=== PATIENT | female | born 2000 | race Caucasian/White ===

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

== ENCOUNTER → 2018-07-12 | Outpatient (CLI) | payer SELFPAY ==
--- NOTE | 2018-07-12 15:32 | RADIOLOGY REPORT (SQ) ---
EXAM DESCRIPTION: U/S OB 14+ TRNABD 1GES W/O DOP COMPLETED DATE/TIME: 07/12/2018 3:02 pm REASON FOR STUDY: Z34.82 ENCOUNTER FOR SUPRVSN OF NORMAL , SECOND TRIMESTER Z34.82 ENCOUNT ER FOR SUPRVSN OF NORMAL , SECOND TRI COMPARISON: No previous imaging this TECHNIQUE: Static and Dynamic grayscale imaging performed of gravid uterus using transabdominal appr oach. Additional selected color Doppler and spectral images recorded. All stored on PACS. LIMITATIONS: None. FINDINGS: FETUSES SEEN:1 EGA: By ultrasound measurements is 26 weeks 3 days, estimated due date 10/15/2018. Calculated today u sing BPD,FL,HC,AC documented on images. Patient reports last menses 02/05/2018 which would make the clinical age 22 weeks 3 days and due date . NAY: By ultrasound, 10/15/2018 EFW: 937 grams PERCENTILE: Not calculated RIKKI: Adequate amount. PLACENTA: Posterior GRADE: I PRESENTATION: Cephalic. ANATOMY: HEART RATE: 155 beats per minute. FOUR CHAMBER HEART: Visualized. THREE VESSEL CORD: Two-vessel cord present CORD INSERTION: Visualized. KIDNEYS AND BLADDER: Visualized. Appear normal. STOMACH: Visualized. Appears normal. SPINE: Normal as visualized. BRAIN AND LATERAL VENTRICLES: Visualized. Appear normal. OTHER: No other significant finding. MATERNAL ADNEXA: Maternal ovaries not visualized. CERVICAL LENGTH: Closed, 3.3 cm in length OTHER: No other significant finding. IMPRESSION: LIVING INTRAUTERINE . ESTIMATED GESTATIONAL AGE 26 weeks 3 days by ultrasound measurements, 4 week discrepancy with last me nstrual period Two-vessel cord Trimester of : Second trimester - 13 weeks 1 day to 27 weeks 6 days. TECHNICAL DOCUMENTATION: JOB ID: [id number] [employer]- All Rights Reserved Reading location - IP/workstation name: [email or web address]
== END ==
LOC: RAD 16:24
PROVIDERS: ATTEND Nurse Practitioner
DX: Z34.82 Encounter for supervision of other normal pregnancy, second trimester (principal)
CPT/HCPCS: 76805

== ENCOUNTER 2018-10-07 19:43 | Outpatient (CLI) | payer MEDICAID ==
[2018-10-07 20:22] LABS: APPEARANCE,URINE SLIGHTLY-CLOUDY; BILIRUBIN,URINE NEGATIVE (NEGATIVE); COLOR,URINE YELLOW; GLUCOSE, URINE NEGATIVE (NEGATIVE); KETONES,URINE NEGATIVE (NEGATIVE); LEUKOCYTE ESTERASE,URINE MODERATE (NEGATIVE); NITRITE,URINE NEGATIVE (NEGATIVE); PROTEIN,URINE NEGATIVE (NEGATIVE); URINE SPECIFIC GRAVITY 1.025
[2018-10-07 20:39] LABS: URINE AMPHETAMINES SCREEN NEGATIVE; URINE BARBITURATES SCREEN NEGATIVE; URINE BENZODIAZEPINES SCREEN NEGATIVE; URINE COCAINE SCREEN NEGATIVE; URINE MARIJUANA (THC) SCREEN NEGATIVE; URINE METHADONE SCREEN NEGATIVE; URINE PHENCYCLIDINE SCREEN NEGATIVE
--- NOTE | 2018-10-07 20:58 | Non Stress Test Report ---
Non Stress Test Datetime Report Generated by CPN: 10/07/2018 20:58 DEMOGRAPHIC Test Number: 1 EGA NST: 38.6 INDICATION Indication for Study: Ordered by Provider MONITORING Monitor Explained: Monitor Explained; Test Explained; Patient Verbalized Understanding Time on Monitor: 10/07/2018 20:02 Time off Monitor: 10/07/2018 20:55 NST Duration: 53 NST INTERVENTIONS NST Interventions: PO Hydration; Reposition Patient Physician Notified NST: Dr. Fletcher BABY A: [id number] BABY A Movement : Present Contraction Frequency : rarely FHR Baseline : 135 Accelerations : 15X15 Variability : Moderate 6-25bpm NST Review: Meets Criteria for Reactive NST NST Review and Verified By : Cat RN NST Results: Reactive NST REPORT Report Trigger: Send Report
== END 2018-10-07 21:00 | disposition home or self-care (01) ==
LOC: LC 19:43
PROVIDERS: ATTEND Obstetrics & Gynecology Gynecology
PROC: 4A1HXCZ Monitoring of Products of Conception, Cardiac Rate, External Approach (ICD-10-PCS; principal; 2018-10-07)
DX: O99.283 Endocrine, nutritional and metabolic diseases complicating pregnancy, third trimester (principal); E86.0 Dehydration; Z3A.38 38 weeks gestation of pregnancy
CPT/HCPCS: 59025; 80307; 81005; 84112

== ENCOUNTER 2018-10-24 10:31 | Inpatient (IN) | payer MEDICAID ==
[2018-10-24] MEDS ORDERED: PENICILLIN G-K 5 MILLION UNIT VIAL ONE (11:54)
[2018-10-24 12:24] LABS: APPEARANCE,URINE SLIGHTLY-CLOUDY; BILIRUBIN,URINE NEGATIVE (NEGATIVE); COLOR,URINE YELLOW; GLUCOSE, URINE NEGATIVE (NEGATIVE); KETONES,URINE NEGATIVE (NEGATIVE); LEUKOCYTE ESTERASE,URINE TRACE (NEGATIVE); NITRITE,URINE NEGATIVE (NEGATIVE); PROTEIN,URINE NEGATIVE (NEGATIVE); UROBILINOGEN,URINE NEGATIVE mg/dL (<2.0)
[2018-10-24] MEDS ORDERED: RINGERS SOLUTION,LACTATED 1,000 ML IV PRN (12:35)
[2018-10-24] MEDS ORDERED: PENICILLIN G POTASSIUM 5,000,000 UNIT in DEXTROSE 5%-WATER 100 ML IV ONE (12:35)
--- NOTE | 2018-10-24 12:41 | Admission Physical ---
Datetime Report Generated by CPN: 10/24/2018 12:41 CURRENT ADMISSION Chief Complaint: Uterine Contractions Indication for Induction- Other: 2 vessel cord: was scheduled for induction tomorrow and arrived today in early labor. keep for augmentation Admit Impression : Term, Intrauterine ; Intact Membranes Admit Plan: Admit to Unit; Initiate Labor Augmentation Protocol ALLERGIES Medication Allergies: No Medication Allergies: No Known Allergies (10/07/2018) Latex: No Latex Allergies Food Allergies: n/a Environmental Allergies: n/a OBSTETRICAL HISTORY EDC: 10/15/2018 00:00 : 2 Para: 1 Term: 1 : 0 SAB: 0 IAB: 0 Ectopic: 0 Livin Cesareans: 0 VBACs: 0 Multiple Births: 0 Gestational Diabetes: No Rh Sensitization: No Incompetent Cervix: No TRE: No Infertility: No ART Treatment: No Uterine Anomaly: No IUGR: No Hx Previous C/S: No Macrosomia: No Hx Loss/Stillborn: No PIH: No Hx : No Placenta Previa/Abruption: No Depression/PP Depression: No PTL/PROM: No Post Hemorrhage: No Current Procedures: Ultrasound; NST Obstetrical History Comments: G1- @ 41wks female 8lbs 3oz (had high BP) G2- Current SEE RECORDS Alcohol: No Marijuana : No Cocaine: No Other Illicit Drugs: No Cigarettes: Never Smoker. 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 Heart Disease: No Hosp/Surgery: No Autoimmune Disorder: No Anesthetic Complications: No Kidney Disease: No Abnormal Pap Smear: No Neuro/Epilepsy: No Psychiatric Disorders: No Other Medical Diseases: No Hepatitis/Liver Disease: No Significant Family History: No Varicosities/Phlebitis: No Trauma/Violence : No Thyroid Dysfunction: No INFECTIOUS HISTORY Gonorrhea: No Genital Herpes: No Chlamydia: Yes Tuberculosis: No Syphilis: No Hepatitis: No HIV/AIDS Exposure: No Rash or Viral Illness: No HPV: No Infectious History Comments: Hx Chlamydia in 2nd trimester PHYSICAL EXAM General: Normal HEENT: Normal Neurologic: Normal Thyroid: Normal Heart: Normal Lungs: Normal Breast: Normal Back: Normal Abdomen: Normal Genitourinary Exam: Normal Extremities: Normal DTRs: Normal Pelvic Type: Adequate Vital Signs: Reviewed VAGINAL EXAM Dilatation: 3 Effacement: 80 Station: -2 MEMBRANES Pooling: Negative Membranes: Intact FETUS A EGA: 41.2 Monitoring: External US FHR- Baseline: 150 Variability: Moderate 6-25bpm Accelerations: 15X15 Decelerations: None FHR Category: Category I Estimated Weight (gm): 3500 Presentation: Vertex PLANS FOR LABOR AND DELIVERY Labor and Delivery: None Pain Management: Medications; Epidural Feeding Preference: Breast Benefit of Breast Feed Discussed: Yes Circumcision: No INFORMED CONSENT Signature: with User ID: [email or web address]
[2018-10-24 12:51] LABS: URINE AMPHETAMINES SCREEN NEGATIVE; URINE BARBITURATES SCREEN NEGATIVE; URINE BENZODIAZEPINES SCREEN NEGATIVE; URINE COCAINE SCREEN NEGATIVE; URINE MARIJUANA (THC) SCREEN NEGATIVE; URINE METHADONE SCREEN NEGATIVE; URINE PHENCYCLIDINE SCREEN NEGATIVE
[2018-10-24] MEDS ORDERED: OXYTOCIN/NORMAL SALINE 20 UNIT/1,000 ML RTUINJ IV PRN ×2 (12:56→14:57)
[2018-10-24 13:32] LABS: ABSOLUTE LYMPHOCYTES (AUTO) 1.5 10^3/uL (0.5-4.7); ABSOLUTE MONOCYTES (AUTO) 0.7 10^3/uL (0.1-1.4); ABSOLUTE NEUT (AUTO) 11.8 10^3/uL (1.7-8.2); EOSINOPHILS % (AUTO) 0.1 % (0-6); HEMOGLOBIN 11.7 g/dL (12.0-15.5); LYMPHOCYTES % (AUTO) 10.4 % (13-45); MEAN CORPUSCULAR HEMOGLOBIN 28.9 pg (27.0-33.4); MEAN CORPUSCULAR HGB CONC 33.5 g/dL (32.0-36.0); MEAN CORPUSCULAR VOLUME 86 fl (80-97); MONOCYTES % (AUTO) 5.1 % (3-13); PLATELET COUNT 204 10^3/uL (150-450); RED BLOOD COUNT 4.06 10^6/uL (3.72-5.28); RED CELL DISTRIBUTION WIDTH 13.9 % (11.5-14.0); SEGMENTED NEUTROPHILS % (AUTO) 84.4 % (42-78); TOTAL CELLS COUNTED % (AUTO) 100 %
[2018-10-24] MEDS ORDERED: NALBUPHINE HCL INJ 10 MG/1 ML AMPULE ONE (13:49)
[2018-10-24] MEDS ORDERED: PROMETHAZINE HCL INJ 25 MG/1 ML VIAL ONE (13:49)
[2018-10-24] MEDS ORDERED: OXYTOCIN 10 UNIT/ML VIAL ONE (14:23)
[2018-10-24] MEDS ORDERED: LIDOCAINE 1% INJ-PF (10 MG/ML) 30 ML SDV ONE (14:23)
[2018-10-24] MEDS ORDERED: OXYTOCIN/NORMAL SALINE 20 UNIT/1,000 ML RTUINJ ONE (14:23)
[2018-10-24] MEDS ORDERED: MISOPROSTOL 0.2 MG TABLET ONE (14:23)
[2018-10-24] MEDS ORDERED: PROMETHAZINE HCL INJ 25 MG/1 ML VIAL IV PRN (14:57)
[2018-10-24] MEDS ORDERED: DIBUCAINE 1% OINTMENT 56 GM TP PRN (14:57)
[2018-10-24] MEDS ORDERED: ACETAMINOPHEN WITH CODEINE #3 TABLET PO PRN ×2 (14:57)
[2018-10-24] MEDS ORDERED: PROMETHAZINE HCL 25 MG SUPP.RECT PR PRN (14:57)
[2018-10-24] MEDS ORDERED: MEASLES,MUMPS&RUBELLA VACC/PF 0.5 ML VIAL SUBCUT PRN (14:57)
[2018-10-24] MEDS ORDERED: DIPH/PERTUSS(ACELL)/TETANUS VAC/PF 0.5 ML SYR (>=10YO) IM PRN (14:57)
[2018-10-24] MEDS ORDERED: PSEUDOEPHEDRINE HCL 30 MG TABLET PO PRN (14:57)
[2018-10-24] MEDS ORDERED: GLYCERIN/WITCH HAZEL LEAF 1 EACH MED..PAD TP PRN (14:57)
[2018-10-24] MEDS ORDERED: DIPHENHYDRAMINE HCL 25 MG CAPSULE PO PRN (14:57)
[2018-10-24] MEDS ORDERED: BENZOCAINE/MENTHOL AEROSOL SPRAY 56 ML TOP PRN (14:57)
[2018-10-24] MEDS ORDERED: PROMETHAZINE HCL 25 MG TABLET PO PRN (14:57)
[2018-10-24] MEDS ORDERED: MAGNESIUM HYDROXIDE SUSP 30 ML UDCUP PO PRN (14:57)
[2018-10-24] MEDS ORDERED: ACETAMINOPHEN 650 MG SUPP.RECT PR PRN (14:57)
[2018-10-24] MEDS ORDERED: NA PHOS,M-B/NA PHOS,DI-BA (ADULT) 133 ML ENEMA PR PRN (14:57)
[2018-10-24] MEDS ORDERED: ZOLPIDEM TARTRATE 5 MG TABLET PO PRN (14:57)
[2018-10-24] MEDS ORDERED: PENICILLIN G POTASSIUM 2,500,000 UNIT in DEXTROSE 5%-WATER 50 ML IV SCH (16:36)
--- NOTE | 2018-10-24 18:06 | Delivery Summary ---
Del Sum A-C Datetime Report Generated by CPN: 10/24/2018 18:06 DELIVERY PERSONNEL DELIVERY PERSONNEL: [id number] Delivery Doctor:: Raine Henry MD Labor and Delivery Nurse:: Kelly Frederick RNphysical ther Nurse:: Qiana Dela Cruz RN Nursery Nurse:: Anu Carias RN Nursery Nurse:: Ann Philip RN MATERNAL INFORMATION Delivery Anesthesia: None Medications After Delivery: Pitocin Drip 20 Units/1000ml NSS Estimated Blood Loss (ml): 200 Maternal Complications: None Other Maternal Complications: meconium LABOR SUMMARY EDC: 10/15/2018 00:00 No. Babies in Womb: 1 Labor Anesthesia: IV Sedation LABOR INFORMATION Reason for Induction: Not Applicable Onset of Labor: 10/24/2018 08:00 Complete Dilatation: 10/24/2018 14:20 Oxytocin: N/A Group B Beta Strep: Positive Antibiotics # of Doses: 1 Antibiotics Time of Last Dose: 1210 Name of Antibiotic Given: PCN Steroids Given: None Reason Steroids Not Administered: Not Applicable MEMBRANES Membranes Rupture Method: Spontaneous Rupture of Membranes: 10/24/2018 13:14 Length of Rupture (hr): 1.25 Amniotic Fluid Color: Heavy Meconium Amniotic Fluid Amount: Small STAGES OF LABOR Stage 1 hr: 6 Stage 1 min: 20 Stage 2 hr: 0 Stage 2 min: 9 Stage 3 hr: 0 Stage 3 min: 4 Total Time in Labor hr: 6 Total Time in Labor min: 33 VAGINAL DELIVERY Episiotomy: None Laceration #1: None Laceration Extension #1: N/A Laceration Repair: Not Applicable BABY A INFORMATION Infant Delivery Date/Time: 10/24/2018 14:29 Method of Delivery: Vaginal Born in Route : No : N/A Forceps: N/A Vacuum Extraction: N/A Shoulder Dystocia : No PRESENTATION/POSITION BABY A Presentation: Cephalic Cephalic Presentation: Vertex Vertex Position: Right Occipital Anterior Breech Presentation: N/A PLACENTA INFORMATION BABY A Placenta Delivery Time : 10/24/2018 14:33 Placenta Method of Delivery: Spontaneous Placenta Status: Delivered SCORES BABY A Heart Rate 1 min: >100 bpm Resp Effort 1 min: Good Cry Reflex Irritability 1 min: Cough or Sneeze or Pulls Away Muscle Tone 1 min: Active Motion Color 1 min: Blue/Pale Resuscitation Effort 1 min: Tactile Stimulation SCORE 1 MIN: 8 Heart Rate 5 min: >100 bpm Resp Effort 5 min: Good Cry Reflex Irritability 5 min: Cough or Sneeze or Pulls Away Muscle Tone 5 min: Flaccid Color 5 min: Blue/Pale Resuscitation Effort 5 min: Tactile Stimulation SCORE 5 MIN: 6 Heart Rate 10 min: >100 bpm Resp Effort 10 min: Slow, Irregular Reflex Irritability 10 min: Cough or Sneeze or Pulls Away Muscle Tone 10 min: Some Flexion of Extremities Color 10 min: Blue/Pale Resuscitation Effort 10 min: Tactile Stimulation; Oxygen SCORE 10 MIN: 6 INFANT INFORMATION BABY A Gestational Age at Delivery: 41.2 Gestational Status: Late Term- 41- 41.6 Weeks Outcome : Liveborn Infant Condition : Stable Sex: Male IDENTIFICATION BABY A Infant Verification Date/Time: 10/24/2018 14:55 ID Band Number: [id number] Mother's Name Verified: Yes RN Verifying Infant: Nathalie Frederick, RN and C. Jose De Jesus, RN WEIGHT/LENGTH BABY A Birthweight (gm): 3800 Infant Weight (lb): 8 Weight (oz): 6 Infant Length (in): 21.00 Length (cm): 53.34 CORD INFORMATION BABY A No. Cord Vessels: 3 Nuchal Cord : Around Neck x1, Loose Cord Blood Taken: Yes-For Storage (Mom's Blood type +) ASSESSMENT BABY A Complications: Meconium Physical Findings at Delivery: Within Normal Limits Pointer Helper/ALS Called : Yes Care By: Nathalie Frederick RN, Faraz Cruz RN Transferred To: NICU RESUSCITATION BABY A Resuscitation Effort: Tactile Stimulation Other Medication Given: of viable male infant at 1429. 1 minute vigorous, crying. 8, 2 off for color. 5 minutes infant crying with stimulation, breathing, but blue and floppy. Taken to warmer for further support. Nursery called to bedside for assessment. Tactile stimulation continued. Pulse O2 applied. O2 sat 54. Blow by given at 10 L O2@ 100%. still breathing. Pulse O2 up to 81 @ 9 minutes. Nursery at bedside. CPAP @ room air. PPV applied at 21%, 30 seconds O2 sat at 51%, and then increased 30% O2 sat 46, 30 seconds and then increased to 40% O2 sat 42, and then increased to 60% after 1 minute, O2 sat 79. Infant began crying and transferred to nursery. SIGNATURES Signature: Electronically signed by Raine Henry MD ([facility]) on 10/24/2018 at 14:51 with User ID: [email or web address]
[2018-10-24] MEDS: DOCUSATE SODIUM 100 MG CAPSULE PO SCH (18:44)
[2018-10-24] MEDS: FERROUS SULFATE 325 MG TABLET PO SCH (18:44)
[2018-10-24] MEDS: FAMOTIDINE 20 MG TABLET PO SCH (22:16)
[2018-10-24] MEDS: IBUPROFEN 800 MG TABLET PO SCH (22:17)
[2018-10-25] MEDS: IBUPROFEN 800 MG TABLET PO SCH ×3 (05:26→22:21)
[2018-10-25 06:56] LABS: HEMATOCRIT 30.1 % (36.0-47.0); HEMOGLOBIN 10.2 g/dL (12.0-15.5); MEAN CORPUSCULAR HEMOGLOBIN 29.1 pg (27.0-33.4); MEAN CORPUSCULAR VOLUME 86 fl (80-97); PLATELET COUNT 178 10^3/uL (150-450); RED BLOOD COUNT 3.52 10^6/uL (3.72-5.28); RED CELL DISTRIBUTION WIDTH 13.9 % (11.5-14.0); WHITE BLOOD COUNT 12.8 10^3/uL (4.0-10.5)
[2018-10-25] MEDS: PRENATAL VITAMIN W DHA CAPSULE PO SCH (09:31)
[2018-10-25] MEDS: FAMOTIDINE 20 MG TABLET PO SCH ×3 (09:31→22:22)
[2018-10-25] MEDS: DOCUSATE SODIUM 100 MG CAPSULE PO SCH ×2 (09:31→17:51)
[2018-10-25] MEDS: FERROUS SULFATE 325 MG TABLET PO SCH ×2 (09:31→17:51)
[2018-10-25] MEDS: SENNOSIDES/DOCUSATE 8.6-50 MG 1 EACH TABLET PO SCH (09:31)
--- NOTE | 2018-10-25 09:36 | PDOC PROGRESS REPORT ---
Subjective Progress Note for:: 10/25/18 Subjective:: Patient states that she feels good; decreasing lochia. Cramping is controlled. Patient denies chest pain, shortness of breath, fever/chills and nausea/vomiting. She is ambulating and voiding without difficulty. Reason For Visit: Physical Exam - Physical Exam Vital Signs: Temp Pulse Resp BP Pulse Ox 98.1 F 73 17 128/74 H 98 10/25/18 07:58 10/25/18 07:58 10/25/18 07:58 10/25/18 07:58 10/25/18 07:58 Intake & Output 10/24/18 10/25/18 10/26/18 06:59 06:59 06:59 Intake Total 300 Balance 300 Weight 95.8 kg General appearance: PRESENT: no acute distress Respiratory exam: PRESENT: clear to auscultation andree Cardiovascular exam: PRESENT: RRR GI/Abdominal exam: PRESENT: normal bowel sounds, soft - Fundus firm and below umbilicus Gentrourinary exam: ABSENT: ecchymosis, erythema, lacerations, lesions, scrotal swelling, testicular tenderness, urethral discharge, indwelling catheter, other Result Laboratory Results: 10/25/18 06:43 10/24/18 10/24/18 10/24/18 10:35 12:54 12:54 WBC 14.0 H RBC 4.06 Hgb 11.7 L Hct 35.0 L MCV 86 MCH 28.9 MCHC 33.5 RDW 13.9 Plt Count 204 Seg Neutrophils % 84.4 H Lymphocytes % 10.4 L Monocytes % 5.1 Eosinophils % 0.1 Basophils % 0.0 Absolute Neutrophils 11.8 H Absolute Lymphocytes 1.5 Absolute Monocytes 0.7 Absolute Eosinophils 0.0 Absolute Basophils 0.0 Urine Color YELLOW Urine Appearance SLIGHTLY-CLOUDY Urine pH 6.0 Ur Specific [place] 1.020 Urine Protein NEGATIVE Urine Glucose (UA) NEGATIVE Urine Ketones NEGATIVE Urine Blood SMALL H Urine Nitrite NEGATIVE Ur Leukocyte Esterase TRACE H Blood Type A POSITIVE Antibody Screen NEGATIVE 10/25/18 06:43 WBC 12.8 H RBC 3.52 L Hgb 10.2 L Hct 30.1 L MCV 86 MCH 29.1 MCHC 34.0 RDW 13.9 Plt Count 178 Seg Neutrophils % Lymphocytes % Monocytes % Eosinophils % Basophils % Absolute Neutrophils Absolute Lymphocytes Absolute Monocytes Absolute Eosinophils Absolute Basophils Urine Color Urine Appearance Urine pH Ur Specific [place] Urine Protein Urine Glucose (UA) Urine Ketones Urine Blood Urine Nitrite Ur Leukocyte Esterase Blood Type Antibody Screen Assessment & Plan - Diagnosis (1) Vaginal delivery Is this a current diagnosis for this admission?: Yes (2) anemia Is this a current diagnosis for this admission?: Yes - Time Time Spent with patient: Less than 15 minutes Within: within 48 hours - Plan Summary Plan Summary: Continue care
[2018-10-26] MEDS: IBUPROFEN 800 MG TABLET PO SCH ×2 (05:53→13:47)
[2018-10-26 08:31] VITALS: BP 109/48
--- NOTE | 2018-10-26 10:03 | PDOC PROGRESS REPORT ---
Subjective-OB Progress Note for:: 10/26/18 Subjective: Doing well, no c/o, hsb at BS Physical Exam (OB) Vital Signs: Temp Pulse Resp BP Pulse Ox 98.3 F 72 20 109/48 L 99 10/26/18 08:04 10/26/18 08:04 10/26/18 08:04 10/26/18 08:04 10/26/18 08:04 Intake & Output 10/25/18 10/26/18 10/27/18 06:59 06:59 06:59 Intake Total 300 600 Balance 300 600 Weight 95.8 kg - PIH/Pre-Eclampsia Headache: Absent Epigastric Pain: No Visual Changes: No - Lochia Lochia Amount: Scant < 10 ml Lochia Color: Rubra/Red - Abdomen Description: Soft, Round Hernia Present: No Fundal Description: Firm, Midline Fundal Height: u/u - u/2 Objective-Diagnostic Laboratory: 10/25/18 06:43 Assessment and Plan(PN) - Assessment and Plan (1) anemia Is this a current diagnosis for this admission?: Yes (2) Adolescent Is this a current diagnosis for this admission?: Yes (3) Vaginal delivery Is this a current diagnosis for this admission?: Yes - Time Spent with Patient Time with patient: Less than 15 minutes Medications reviewed and adjusted accordingly: Yes - Disposition Anticipated Discharge: Home Within: within 24 hours
--- NOTE | 2018-10-26 10:08 | PDOC DISCHARGE SUMMARY ---
Final Diagnosis Discharge Date: 10/26/18 - Final Diagnosis (1) anemia Is this a current diagnosis for this admission?: Yes (2) Adolescent Is this a current diagnosis for this admission?: Yes (3) Vaginal delivery Is this a current diagnosis for this admission?: Yes Discharge Data - Discharge Medication Home Medications: Vit 10/Iron/Folic/Dha [Vitafol-Ob+Dha Combo Pack] 1 tab PO DAILY 03/10/17 Gestational Age: 41.2 Reason(s) for Admission: Onset of Labor, Group B Strep Positive Procedures: NST, Ultrasound - heavy mec Intrapartum Procedure(s): Spontaneous Vaginal Delivery - [place] Data Baby 1 Male at 1 minute: 8 at 5 minutes: 6 at 10 minutes: 6 Weight: 3.799 kg Home with Mother: Yes Complications: No - Diagnosis Test Laboratory: Temp Pulse Resp BP Pulse Ox 98.3 F 72 20 109/48 L 99 10/26/18 08:04 10/26/18 08:04 10/26/18 08:04 10/26/18 08:04 10/26/18 08:04 10/24/18 10/24/18 10/25/18 10:35 12:54 06:43 RBC 4.06 3.52 L Hgb 11.7 L 10.2 L Hct 35.0 L 30.1 L Urine Opiates Screen NEGATIVE - Discharge information/Instructions Discharge Activity: Activity As Tolerated, No Lifting Over 10 Pounds, No Lifting/Push/Pulling, Pelvic Rest Discharge Diet: As Tolerated, Regular Disposition: HOME, SELF-CARE Follow up with: [facility] in: 3, Weeks
[2018-10-26] MEDS: FERROUS SULFATE 325 MG TABLET PO SCH (10:32)
[2018-10-26] MEDS: FAMOTIDINE 20 MG TABLET PO SCH (10:32)
[2018-10-26] MEDS: PRENATAL VITAMIN W DHA CAPSULE PO SCH (10:32)
[2018-10-26] MEDS: DOCUSATE SODIUM 100 MG CAPSULE PO SCH (10:32)
[2018-10-26] MEDS: SENNOSIDES/DOCUSATE 8.6-50 MG 1 EACH TABLET PO SCH (10:32)
== END 2018-10-26 17:44 | disposition home or self-care (01) | DRG 807 ==
LOC: LC 10:31 → LR 12:45 → 2S 17:57
PROVIDERS: ADMIT Obstetrics & Gynecology; ATTEND Obstetrics & Gynecology
PROC: 10E0XZZ Delivery of Products of Conception, External Approach (ICD-10-PCS; principal; 2018-10-24)
DX: O69.89X0 Labor and delivery complicated by other cord complications, not applicable or unspecified (principal); Z37.0 Single live birth; O77.0 Labor and delivery complicated by meconium in amniotic fluid; O99.824 Streptococcus B carrier state complicating childbirth; O69.81X0 Labor and delivery complicated by cord around neck, without compression, not applicable or unspecified; O99.02 Anemia complicating childbirth; D64.9 Anemia, unspecified; Z86.19 Personal history of other infectious and parasitic diseases; Z3A.41 41 weeks gestation of pregnancy
CPT/HCPCS: 36415; 80307; 81005; 85025; 85027; 86592; 86850; 86900; 86901; J2300; J2540; J2550; J2590; J3490

== ENCOUNTER 2019-08-02 17:56 | Outpatient (CLI) | payer SELFPAY ==
[2019-08-02] MEDS ORDERED: RINGERS SOLUTION,LACTATED 1,000 ML IV ONE (18:38)
[2019-08-02] MEDS ORDERED: ONDANSETRON HCL INJ/PF 4 MG/2 ML SDV IV PRN (18:38)
[2019-08-02] MEDS ORDERED: RINGERS SOLUTION,LACTATED 1,000 ML IV PRN (18:38)
[2019-08-02 18:45] LABS: AMORPHOUS SEDIMENT,URINE TRACE /HPF; APPEARANCE,URINE CLOUDY; BILIRUBIN,URINE NEGATIVE (NEGATIVE); COLOR,URINE AMBER; GLUCOSE, URINE NEGATIVE (NEGATIVE); KETONES,URINE 80 mg/dL (NEGATIVE); LEUKOCYTE ESTERASE,URINE LARGE (NEGATIVE); NITRITE,URINE NEGATIVE (NEGATIVE); PROTEIN,URINE 100 mg/dL (NEGATIVE); URINE SPECIFIC GRAVITY 1.021; UROBILINOGEN,URINE NEGATIVE mg/dL (<2.0)
[2019-08-02 19:09] LABS: URINE AMPHETAMINES SCREEN NEGATIVE; URINE BARBITURATES SCREEN NEGATIVE; URINE BENZODIAZEPINES SCREEN NEGATIVE; URINE COCAINE SCREEN NEGATIVE; URINE METHADONE SCREEN NEGATIVE; URINE PHENCYCLIDINE SCREEN NEGATIVE
[2019-08-02 19:12] LABS: URINE MARIJUANA (THC) SCREEN UNCONFIRMED POSITIVE
[2019-08-02 19:16] LABS: HEMATOCRIT 31.6 % (36.0-47.0); HEMOGLOBIN 10.9 g/dL (12.0-15.5); MEAN CORPUSCULAR HEMOGLOBIN 30.7 pg (27.0-33.4); MEAN CORPUSCULAR HGB CONC 34.5 g/dL (32.0-36.0); MEAN CORPUSCULAR VOLUME 89 fl (80-97); PLATELET COUNT 163 10^3/uL (150-450); RED BLOOD COUNT 3.56 10^6/uL (3.72-5.28); RED CELL DISTRIBUTION WIDTH 12.9 % (11.5-14.0); WHITE BLOOD COUNT 8.6 10^3/uL (4.0-10.5)
[2019-08-02 19:40] LABS: ALBUMIN 3.3 g/dL (3.5-5.0); ALKALINE PHOSPHATASE 66 U/L (38-126); AMYLASE 70 U/L (30-110); ANION GAP 10 (5-19); ASPARTATE AMINO TRANSFERASE 17 U/L (14-36); BILIRUBIN,DIRECT 0.1 mg/dL (0.0-0.4); BILIRUBIN,TOTAL 0.6 mg/dL (0.2-1.3); BLOOD UREA NITROGEN 7 mg/dL (7-20); CALCIUM 8.6 mg/dL (8.4-10.2); CARBON DIOXIDE 23 mmol/L (22-30); CHLORIDE 102 mmol/L (98-107); GLUCOSE 78 mg/dL (75-110); POTASSIUM 3.5 mmol/L (3.6-5.0); TOTAL PROTEIN 6.3 g/dL (6.3-8.2)
[2019-08-02 20:18] LABS: APPEARANCE,URINE CLEAR; BILIRUBIN,URINE NEGATIVE (NEGATIVE); COLOR,URINE YELLOW; GLUCOSE, URINE NEGATIVE (NEGATIVE); KETONES,URINE TRACE mg/dL (NEGATIVE); LEUKOCYTE ESTERASE,URINE TRACE (NEGATIVE); NITRITE,URINE NEGATIVE (NEGATIVE); PROTEIN,URINE NEGATIVE (NEGATIVE); URINE SPECIFIC GRAVITY 1.008; UROBILINOGEN,URINE NEGATIVE mg/dL (<2.0)
[2019-08-02] MEDS ORDERED: ONDANSETRON HCL INJ/PF 4 MG/2 ML SDV ONE (20:22)
--- NOTE | 2019-08-02 20:23 | RADIOLOGY REPORT (SQ) ---
EXAM DESCRIPTION: US FOLLOW UP COMPLETED DATE/TME: 08/02/2019 18:07 CLINICAL HISTORY: 18 years, Female, EFW, dating, fluid, presentat, cervical length COMPARISON: Prior study from 07/12/2018 TECHNIQUE: Axial 2-D grayscale images of the pelvis were acquired. Doppler was utilized. LIMITATIONS: None. FINDINGS: Single live intrauterine is identified with measurements as follows: Cervix is closed, measuring 3.3 cm in length heart rate is 153 bpm Four-chamber heart was visualized. Biparietal diameter: 7.9 cm Head circumference: 29.0 cm Abdominal circumference: 25.35 cm Femoral length: 5.87 cm Estimated weight is 1546 g; estimated gestational age is 31 weeks and 0 days for an estimated date of delivery of 10/03/2009. This is not congruent with the estimated clinical age which is 23 weeks and 3 days (based on LMP of 02/19/2019). Amniotic fluid index is 10.1 cm Placenta is anterior, grade 2 Bilateral kidneys are identified Cerebellum is well visualized, measuring 3.5 cm in maximum diameter Cisterna magna is present. Three-vessel cord is evident bladder is well visualized and appears normal stomach is poorly visualized spine was not well-visualized Lateral ventricles were not well visualized Upper extremity was not well-visualized Bilateral lower extremity for present. presentation is vertex IMPRESSION: Single live intrauterine , as above described. Ultrasound age (31 weeks and 0 days) is not congruent with the clinical age (23 weeks and 3 days based on LMP of 02/19/2019). copyright 2010 [employer]- All Rights Reserved
[2019-08-02 20:27] LABS: BACTERIA (WET MOUNT) 4+ BACTERIA SEEN; EPITHELIALS (WET MOUNT) 3+ EPITHELIALS SEEN; T.VAGINALIS (WET MOUNT) NO TRICHOMONAS SEEN; WBCS (WET MOUNT) 3+ WBCS SEEN; YEAST (WET MOUNT) NO YEAST SEEN
[2019-08-02] MEDS ORDERED: ONDANSETRON 4 MG TAB.RAPDIS ONE (20:27)
[2019-08-02 21:07] LABS: FREE T3 1.59 pg/mL (2.77-5.27); FREE T4 (FREE THYROXINE) 0.82 ng/dL (0.78-2.19)
[2019-08-02 21:47] LABS: CHLAM PCR NOT DETECTED (NOT DETECT)
== END 2019-08-02 22:10 | disposition home or self-care (01) ==
LOC: LC 17:56
PROVIDERS: ATTEND Student in an Organized Health Care Education/Training Program
PROC: 4A1HXCZ Monitoring of Products of Conception, Cardiac Rate, External Approach (ICD-10-PCS; principal; 2019-08-02)
DX: O47.03 False labor before 37 completed weeks of gestation, third trimester (principal); O21.2 Late vomiting of pregnancy; Z3A.31 31 weeks gestation of pregnancy
CPT/HCPCS: 59899; 86900; 86901; 36415; 87086; 84439; 87210; 86850; 82150; 83690; 84443; 85027; 86762; 86592; 80053; 81001; 87340; 86787; 86701; 80307; 84481; 87491; 87591; 86803; 86804; 76805; 93976; G0480 ×2; S0119; 80349; J2405

== ENCOUNTER 2019-09-08 07:48 | Outpatient (CLI) | payer MEDICAID ==
[2019-09-08] MEDS ORDERED: ACETAMINOPHEN 325 MG TABLET ONE (08:36)
[2019-09-08 09:53] LABS: APPEARANCE,URINE CLEAR; BILIRUBIN,URINE NEGATIVE (NEGATIVE); COLOR,URINE YELLOW; GLUCOSE, URINE NEGATIVE (NEGATIVE); KETONES,URINE NEGATIVE (NEGATIVE); LEUKOCYTE ESTERASE,URINE NEGATIVE (NEGATIVE); NITRITE,URINE NEGATIVE (NEGATIVE); PROTEIN,URINE NEGATIVE (NEGATIVE); URINE SPECIFIC GRAVITY 1.019; UROBILINOGEN,URINE NEGATIVE mg/dL (<2.0)
[2019-09-08 10:05] LABS: URINE AMPHETAMINES SCREEN NEGATIVE; URINE BARBITURATES SCREEN NEGATIVE; URINE BENZODIAZEPINES SCREEN NEGATIVE; URINE COCAINE SCREEN NEGATIVE; URINE MARIJUANA (THC) SCREEN NEGATIVE; URINE METHADONE SCREEN NEGATIVE; URINE PHENCYCLIDINE SCREEN NEGATIVE
== END 2019-09-08 10:32 | disposition home or self-care (01) ==
LOC: LC 07:48
PROVIDERS: ATTEND Obstetrics & Gynecology
PROC: 4A1HXCZ Monitoring of Products of Conception, Cardiac Rate, External Approach (ICD-10-PCS; principal; 2019-09-08)
DX: O21.9 Vomiting of pregnancy, unspecified (principal); O26.893 Other specified pregnancy related conditions, third trimester; E86.0 Dehydration; Z3A.36 36 weeks gestation of pregnancy
CPT/HCPCS: 59025; 81001; 80307; J3490

== ENCOUNTER 2019-10-01 06:34 | Inpatient (IN) | payer MEDICAID ==
--- NOTE | 2019-10-01 06:38 | Non Stress Test Report ---
Non Stress Test Datetime Report Generated by CPN: 10/01/2019 06:38 DEMOGRAPHIC EGA NST: 36.2 INDICATION Indication for Study (NST) Other: LABOR CHECK VITAL SIGNS Temperature - NST: 98.6 Pulse - NST: 100 RESP - NST: 16 NBPSYS NST: 113 NBPDIA NST: 59 MONITORING Monitor Explained: Monitor Explained; Test Explained; Patient Verbalized Understanding Time on Monitor: 09/08/2019 08:04 Time off Monitor: 09/08/2019 10:15 NST Duration: 131 NST INTERVENTIONS NST Interventions: IV Fluids Physician Notified NST: P Butt CNM BABY A: [id number] BABY A Movement : Present Contraction Frequency : 8-12 FHR Baseline : 135 Accelerations : 15X15 Decelerations : None Variability : Moderate 6-25bpm NST Review: Meets Criteria for Reactive NST NST Review and Verified By : SANGEETHA SANTOS RN NST Results: Reactive NST REPORT Report Trigger: Send Report
[2019-10-01 07:10] LABS: APPEARANCE,URINE CLOUDY; BILIRUBIN,URINE NEGATIVE (NEGATIVE); COLOR,URINE YELLOW; GLUCOSE, URINE NEGATIVE (NEGATIVE); KETONES,URINE NEGATIVE (NEGATIVE); LEUKOCYTE ESTERASE,URINE LARGE (NEGATIVE); NITRITE,URINE NEGATIVE (NEGATIVE); PROTEIN,URINE NEGATIVE (NEGATIVE); URINE SPECIFIC GRAVITY 1.012; UROBILINOGEN,URINE NEGATIVE mg/dL (<2.0)
[2019-10-01] MEDS ORDERED: MISOPROSTOL 0.2 MG TABLET ONE (07:23)
[2019-10-01] MEDS ORDERED: LIDOCAINE 1% INJ-PF (10 MG/ML) 30 ML SDV ONE (07:23)
[2019-10-01] MEDS ORDERED: PENICILLIN G-K 5 MILLION UNIT VIAL ONE (07:23)
[2019-10-01] MEDS ORDERED: OXYTOCIN/NORMAL SALINE 20 UNIT/1,000 ML RTUINJ ONE (07:23)
[2019-10-01 07:38] LABS: URINE AMPHETAMINES SCREEN NEGATIVE; URINE BARBITURATES SCREEN NEGATIVE; URINE BENZODIAZEPINES SCREEN NEGATIVE; URINE COCAINE SCREEN NEGATIVE; URINE MARIJUANA (THC) SCREEN NEGATIVE; URINE METHADONE SCREEN NEGATIVE; URINE PHENCYCLIDINE SCREEN NEGATIVE
--- NOTE | 2019-10-01 07:50 | Admission Physical ---
Datetime Report Generated by CPN: 10/01/2019 07:49 CURRENT ADMISSION Chief Complaint: Uterine Contractions Indication for Induction: Not Applicable Admit Impression : Term, Intrauterine ; Active Labor; Intact Membranes Admit Plan: Admit to Unit ALLERGIES Medication Allergies: No Medication Allergies: No Known Allergies (09/08/2019) Latex: No Latex Allergies Food Allergies: na Environmental Allergies: na OBSTETRICAL HISTORY EDC: 10/04/2019 00:00 : 3 Para: 2 Term: 2 : 0 SAB: 0 IAB: 0 Ectopic: 0 Livin Cesareans: 0 VBACs: 0 Multiple Births: 0 Gestational Diabetes: No Rh Sensitization: No Incompetent Cervix: No TRE: No Infertility: No ART Treatment: No Uterine Anomaly: No IUGR: No Hx Previous C/S: No Macrosomia: No Hx Loss/Stillborn: No PIH: No Hx : No Placenta Previa/Abruption: No Depression/PP Depression: No PTL/PROM: No Post Hemorrhage: No Current Procedures: Ultrasound Obstetrical History Comments: G1- NVSD term G2- term G3- current SEE RECORDS Alcohol: No Marijuana : No Cocaine: No Other Illicit Drugs: No Cigarettes: Never Smoker. [id number] MEDICAL HISTORY Diabetes: No Blood Transfusion: No Pulmonary Disease (Asthma, TB): No Breast Disease: No Hypertension: No Lpn Surgery: No Heart Disease: No Hosp/Surgery: Yes Autoimmune Disorder: No Anesthetic Complications: No Kidney Disease: No Abnormal Pap Smear: No Neuro/Epilepsy: No Psychiatric Disorders: No Other Medical Diseases: No Hepatitis/Liver Disease: No Significant Family History: No Varicosities/Phlebitis: No Trauma/Violence : No Thyroid Dysfunction: No Medical History Comments: High blood pressure during end of 1st , surgery on R arm as a child, child INFECTIOUS HISTORY Gonorrhea: No Genital Herpes: No Chlamydia: Yes Tuberculosis: No Syphilis: No Hepatitis: No HIV/AIDS Exposure: No Rash or Viral Illness: No HPV: No Infectious History Comments: Nellycaraa in 2017-treated PHYSICAL EXAM General: Normal HEENT: Normal Neurologic: Normal Thyroid: Normal Heart: Normal Lungs: Normal Breast: Normal Back: Normal Abdomen: Normal Genitourinary Exam: Normal Extremities: Normal DTRs: Normal Pelvic Type: Adequate Vital Signs: Reviewed; Within Normal Limits VAGINAL EXAM Dilatation: 5 Effacement: 90 Station: -2 Contraction Comments: q 3-4 min MEMBRANES Membranes: Intact FETUS A EGA: 39.4 Monitoring: External US FHR- Baseline: 120s Variability: Moderate 6-25bpm Accelerations: Absent Decelerations: None FHR Category: Category I Admit Comment: This w/ an IUP @ 39-4/7 weeks presents to L_D c/o contractions. She reports good movement. She is intact and her cervix is 5 cm. She is GBS Positive. She has no co-morbidities. PLANS FOR LABOR AND DELIVERY Labor and Delivery: None Pain Management: Natural; Medications Feeding Preference: Both Benefit of Breast Feed Discussed: Yes Circumcision: No INFORMED CONSENT Signature: with User ID: [email or web address]
[2019-10-01] MEDS ORDERED: FENTANYL CITRATE INJ/PF 100 MCG/2 ML AMPUL ONE (07:55)
[2019-10-01 08:01] LABS: ABSOLUTE MONOCYTES (AUTO) 0.8 10^3/uL (0.1-1.4); ABSOLUTE NEUT (AUTO) 8.1 10^3/uL (1.7-8.2); BASOPHILS % (AUTO) 0.2 % (0-2); EOSINOPHILS % (AUTO) 0.4 % (0-6); HEMATOCRIT 32.7 % (36.0-47.0); HEMOGLOBIN 11.3 g/dL (12.0-15.5); LYMPHOCYTES % (AUTO) 18.5 % (13-45); MEAN CORPUSCULAR HEMOGLOBIN 29.9 pg (27.0-33.4); MEAN CORPUSCULAR HGB CONC 34.6 g/dL (32.0-36.0); MEAN CORPUSCULAR VOLUME 87 fl (80-97); MONOCYTES % (AUTO) 6.9 % (3-13); PLATELET COUNT 224 10^3/uL (150-450); RED BLOOD COUNT 3.78 10^6/uL (3.72-5.28); RED CELL DISTRIBUTION WIDTH 13.4 % (11.5-14.0); TOTAL CELLS COUNTED % (AUTO) 100 %; WHITE BLOOD COUNT 10.9 10^3/uL (4.0-10.5)
[2019-10-01] MEDS ORDERED: RINGERS SOLUTION,LACTATED 1,000 ML IV ONE (09:00)
[2019-10-01] MEDS ORDERED: FENTANYL CITRATE INJ/PF 100 MCG/2 ML AMPUL IV ONE (09:00)
[2019-10-01] MEDS ORDERED: RINGERS SOLUTION,LACTATED 1,000 ML IV PRN (09:00)
[2019-10-01] MEDS ORDERED: PENICILLIN G POTASSIUM 5,000,000 UNIT in DEXTROSE 5%-WATER 100 ML IV ONE (09:00)
[2019-10-01] MEDS ORDERED: DIPH/PERTUSS(ACELL)/TETANUS VAC/PF 0.5 ML SYR (>=10YO) IM PRN (10:53)
[2019-10-01] MEDS ORDERED: BENZOCAINE/MENTHOL AEROSOL SPRAY 56 ML TOP PRN (10:53)
[2019-10-01] MEDS ORDERED: DIPHENHYDRAMINE HCL 25 MG CAPSULE PO PRN (10:53)
[2019-10-01] MEDS ORDERED: MEASLES,MUMPS&RUBELLA VACC/PF 0.5 ML VIAL SUBCUT PRN (10:53)
[2019-10-01] MEDS ORDERED: ACETAMINOPHEN 650 MG SUPP.RECT PR PRN (10:53)
[2019-10-01] MEDS ORDERED: NA PHOS,M-B/NA PHOS,DI-BA (ADULT) 133 ML ENEMA PR PRN (10:53)
[2019-10-01] MEDS ORDERED: ACETAMINOPHEN WITH CODEINE #3 TABLET PO PRN ×2 (10:53)
[2019-10-01] MEDS ORDERED: GLYCERIN/WITCH HAZEL LEAF 1 EACH MED..WIPE TP PRN (10:53)
[2019-10-01] MEDS ORDERED: DIBUCAINE 1% OINTMENT 28 GM TP PRN (10:53)
[2019-10-01] MEDS ORDERED: PSEUDOEPHEDRINE HCL 30 MG TABLET PO PRN (10:53)
[2019-10-01] MEDS ORDERED: MAGNESIUM HYDROXIDE SUSP 30 ML UDCUP PO PRN (10:53)
[2019-10-01] MEDS ORDERED: PROMETHAZINE HCL 25 MG TABLET PO PRN (10:53)
[2019-10-01] MEDS ORDERED: PROMETHAZINE HCL 25 MG SUPP.RECT PR PRN (10:53)
[2019-10-01] MEDS ORDERED: OXYTOCIN/NORMAL SALINE 20 UNIT/1,000 ML RTUINJ IV PRN (10:53)
[2019-10-01] MEDS ORDERED: PROMETHAZINE HCL INJ 25 MG/1 ML VIAL IV PRN (10:53)
[2019-10-01] MEDS ORDERED: ZOLPIDEM TARTRATE 5 MG TABLET PO PRN (10:53)
[2019-10-01] MEDS ORDERED: BENZOCAINE/MENTHOL AEROSOL SPRAY 56 ML ONE (10:55)
[2019-10-01] MEDS ORDERED: ACETAMINOPHEN WITH CODEINE #3 TABLET ONE (10:55)
[2019-10-01] MEDS ORDERED: IBUPROFEN 800 MG TABLET ONE (10:55)
[2019-10-01] MEDS ORDERED: PENICILLIN G POTASSIUM 2,500,000 UNIT in DEXTROSE 5%-WATER 50 ML IV SCH (11:30)
--- NOTE | 2019-10-01 12:50 | Delivery Summary ---
Del Sum A-C Datetime Report Generated by CPN: 10/01/2019 12:49 DELIVERY PERSONNEL DELIVERY PERSONNEL: [id number] Delivery Doctor:: Raine Henry MD Labor and Delivery Nurse:: Bruna Almanza RN Nursery Nurse:: Radha Callaway RN Additional Personnel: : Singh Hayes RN MATERNAL INFORMATION Delivery Anesthesia: None Medications After Delivery: Pitocin Bolus-Please Comment Meds After Delivery Comment: Pitocin 20 units in 1000mL nss Estimated Blood Loss (ml): 150 Delivery QBL: 100 Maternal Complications: None LABOR SUMMARY EDC: 10/04/2019 00:00 No. Babies in Womb: 1 Attempted: No Labor Anesthesia: IV Sedation LABOR INFORMATION Reason for Induction: Not Applicable Onset of Labor: 10/01/2019 06:00 Complete Dilatation: 10/01/2019 10:41 Oxytocin: N/A Group B Beta Strep: positive Antibiotics # of Doses: 1 Antibiotics Time of Last Dose: 734 Name of Antibiotic Given: PCN Steroids Given: None Reason Steroids Not Administered: Not Applicable MEMBRANES Membranes Rupture Method: Artificial Rupture of Membranes: 10/01/2019 10:11 Length of Rupture (hr): 0.52 Amniotic Fluid Color: Clear Amniotic Fluid Amount: Small Amniotic Fluid Odor: Normal STAGES OF LABOR Stage 1 hr: 4 Stage 1 min: 41 Stage 2 hr: 0 Stage 2 min: 1 Stage 3 hr: 0 Stage 3 min: 5 Total Time in Labor hr: 4 Total Time in Labor min: 47 VAGINAL DELIVERY Episiotomy: None Laceration #1: None Laceration Extension #1: N/A Laceration Repair: Not Applicable Sponge Count Correct: Yes Sharps Count Correct: Yes CSECTION DELIVERY Primary Indication: N/A Secondary Indication: N/A CSection Incidence: N/A Labor: N/A Elective: N/A CSection Incision: N/A BABY A INFORMATION Delivery Date/Time: 10/01/2019 10:42 Method of Delivery: Vaginal Nurse Controlled Delivery: No Born in Route : No : N/A Forceps: N/A Vacuum Extraction: N/A Shoulder Dystocia : No PRESENTATION/POSITION BABY A Presentation: Cephalic Cephalic Presentation: Vertex Vertex Position: Right Occipital Anterior Breech Presentation: N/A PLACENTA INFORMATION BABY A Placenta Delivery Time : 10/01/2019 10:47 Placenta Method of Delivery: Spontaneous Placenta Status: Delivered SCORES BABY A Heart Rate 1 min: >100 bpm Resp Effort 1 min: Good Cry Reflex Irritability 1 min: Cough or Sneeze or Pulls Away Muscle Tone 1 min: Active Motion Color 1 min: Body [place], Extremities Blue Resuscitation Effort 1 min: Tactile Stimulation SCORE 1 MIN: 9 Heart Rate 5 min: >100 bpm Resp Effort 5 min: Good Cry Reflex Irritability 5 min: Cough or Sneeze or Pulls Away Muscle Tone 5 min: Active Motion Color 5 min: Body [place], Extremities Blue Resuscitation Effort 5 min: N/A SCORE 5 MIN: 9 INFORMATION BABY A Gestational Age at Delivery: 39.4 Gestational Status: Full Term- 39- 40.6 Weeks Outcome : Liveborn Infant Condition : Stable Infant Sex: Male IDENTIFICATION BABY A Verification Date/Time: 10/01/2019 11:12 ID Band Number: [id number] Mother's Name Verified: Yes Infant RN Verifying : Christian AlmanzaLEONILA Additional Verifying Personnel: Luisito Malhotra RN WEIGHT/LENGTH BABY A Birthweight (gm): 3451 Weight (lb): 7 Weight (oz): 10 Infant Length (in): 19.50 Infant Length (cm): 49.53 CORD INFORMATION BABY A No. Cord Vessels: 3 Nuchal Cord : N/A Cord Blood Taken: Yes-For Storage (Mom's Blood type +) Infant Suction: None ASSESSMENT BABY A Infant Complications: None Physical Findings at Delivery: Within Normal Limits Infant Respirations: Appears Normal Skin to Skin: Yes Class A Regional Drivers/ALS Called : No Care By: Luisito Callaway RN Transferred To: Remains with Mother BABY B INFORMATION : N/A SIGNATURES Signature: with User ID: Lindsey
[2019-10-01] MEDS: IBUPROFEN 800 MG TABLET PO SCH ×2 (14:12→21:25)
[2019-10-01] MEDS: DOCUSATE SODIUM 100 MG CAPSULE PO SCH (17:26)
[2019-10-01] MEDS: FERROUS SULFATE 325 MG TABLET PO SCH (17:26)
[2019-10-01] MEDS: FAMOTIDINE 20 MG TABLET PO SCH (21:25)
[2019-10-02] MEDS: IBUPROFEN 800 MG TABLET PO SCH ×3 (05:40→21:06)
[2019-10-02 07:25] LABS: HEMATOCRIT 29.5 % (36.0-47.0); HEMOGLOBIN 10.1 g/dL (12.0-15.5); MEAN CORPUSCULAR HEMOGLOBIN 30.3 pg (27.0-33.4); MEAN CORPUSCULAR HGB CONC 34.2 g/dL (32.0-36.0); MEAN CORPUSCULAR VOLUME 89 fl (80-97); PLATELET COUNT 182 10^3/uL (150-450); RED BLOOD COUNT 3.32 10^6/uL (3.72-5.28); RED CELL DISTRIBUTION WIDTH 13.6 % (11.5-14.0); WHITE BLOOD COUNT 8.5 10^3/uL (4.0-10.5)
[2019-10-02] MEDS: DOCUSATE SODIUM 100 MG CAPSULE PO SCH ×2 (09:22→18:50)
[2019-10-02] MEDS: FERROUS SULFATE 325 MG TABLET PO SCH ×2 (09:22→18:50)
[2019-10-02] MEDS: FAMOTIDINE 20 MG TABLET PO SCH ×2 (09:22→21:05)
[2019-10-02] MEDS: PRENATAL VITAMIN W DHA CAPSULE PO SCH (09:22)
[2019-10-02] MEDS: SENNOSIDES/DOCUSATE 8.6-50 MG 1 EACH TABLET PO SCH (09:22)
--- NOTE | 2019-10-02 11:11 | PDOC PROGRESS REPORT ---
Subjective-OB Progress Note for:: 10/02/19 Subjective: reports bleeding slowing, pain controlled with current meds. denies needs Physical Exam (OB) Vital Signs: Temp Pulse Resp BP Pulse Ox 97.6 F 75 16 139/67 H 100 10/02/19 07:22 10/02/19 07:22 10/02/19 07:22 10/02/19 07:22 10/02/19 07:22 Intake & Output 10/01/19 10/02/19 10/03/19 06:59 06:59 06:59 Intake Total 1000 1000 Balance 1000 1000 Weight 88.6 kg - Abdomen Description: Soft Hernia Present: No Fundal Description: Firm, Midline Fundal Height: u/u - u/2 - Abdominal Distension: No distension Tenderness: Nontender - Extremities Lower extremities: Keyona's sign - neg Calf: Normal, Nontender Objective-Diagnostic Laboratory: 10/02/19 06:58 10/02/19 06:58 WBC 8.5 RBC 3.32 L Hgb 10.1 L Hct 29.5 L MCV 89 MCH 30.3 MCHC 34.2 RDW 13.6 Plt Count 182 Assessment and Plan(PN) - Time Spent with Patient Time with patient: Less than 15 minutes - Disposition Anticipated Discharge: Home Within: within 24 hours
[2019-10-03] MEDS: IBUPROFEN 800 MG TABLET PO SCH ×2 (05:16→14:00)
[2019-10-03] MEDS: DOCUSATE SODIUM 100 MG CAPSULE PO SCH ×2 (09:16→18:34)
[2019-10-03] MEDS: FERROUS SULFATE 325 MG TABLET PO SCH ×2 (09:16→18:34)
[2019-10-03] MEDS: PRENATAL VITAMIN W DHA CAPSULE PO SCH (09:16)
[2019-10-03] MEDS: SENNOSIDES/DOCUSATE 8.6-50 MG 1 EACH TABLET PO SCH (09:16)
[2019-10-03] MEDS: FAMOTIDINE 20 MG TABLET PO SCH (09:17)
--- NOTE | 2019-10-03 09:21 | PDOC PROGRESS REPORT ---
Subjective-OB Progress Note for:: 10/03/19 Subjective: Doing well, ready to go home, baby with patient, breast and bottle feeding, needs to go to work for 4 days to finish her orientation, scant bleeding, voiding and eating well Physical Exam (OB) Vital Signs: Temp Pulse Resp BP Pulse Ox 97.4 F 54 L 16 122/66 99 10/03/19 07:59 10/03/19 07:59 10/03/19 07:59 10/03/19 07:59 10/03/19 07:59 Intake & Output 10/02/19 10/03/19 10/04/19 06:59 06:59 06:59 Intake Total 1000 1300 200 Balance 1000 1300 200 Weight 88.6 kg - PIH/Pre-Eclampsia Headache: Absent Epigastric Pain: No Visual Changes: No - Lochia Lochia Amount: Scant < 10 ml Lochia Color: Rubra/Red - Abdomen Description: Tender, Soft Hernia Present: No Fundal Description: Firm, Midline Fundal Height: u/u - u/2 Objective-Diagnostic Laboratory: 10/02/19 06:58 Assessment and Plan(PN) - Assessment and Plan (1) Vaginal delivery Is this a current diagnosis for this admission?: Yes (2) Adolescent Is this a current diagnosis for this admission?: Yes (3) anemia Is this a current diagnosis for this admission?: Yes - Time Spent with Patient Time with patient: Less than 15 minutes Medications reviewed and adjusted accordingly: Yes - Disposition Anticipated Discharge: Home Within: within 24 hours
--- NOTE | 2019-10-03 09:27 | PDOC DISCHARGE SUMMARY ---
Impression - Admit/DC Date/PCP Admission Date/Primary Care Provider: 10/01/19 08:00 JUSTO YATES MD Discharge Date: 10/03/19 - Discharge Diagnosis (1) Vaginal delivery Is this a current diagnosis for this admission?: Yes (2) Adolescent Is this a current diagnosis for this admission?: Yes (3) anemia Is this a current diagnosis for this admission?: Yes - Additional Information Resuscitation Status: Full Code Discharge Diet: As Tolerated Discharge Activity: Activity As Tolerated, Pelvic Rest Referrals: JUSTO YATES MD [Primary Care Provider] - (wh 4 weeks) Home Medications: Vit 10/Iron/Folic/Dha [Vitafol-Ob+Dha Combo Pack] 1 tab PO DAILY 03/10/17 HPI Gestational Age: 39.4 Reason(s) for Admission: Onset of Labor, Group B Strep Positive Procedures: Ultrasound Intrapartum Procedure(s): Spontaneous Vaginal Delivery - boy, wt 7-10, apgars 9/9 Hospital Course Hospital Course: routine Results Laboratory Results: WBC 8.5 10^3/uL (4.0-10.5) 10/02/19 06:58 RBC 3.32 10^6/uL (3.72-5.28) L 10/02/19 06:58 Hgb 10.1 g/dL (12.0-15.5) L 10/02/19 06:58 Hct 29.5 % (36.0-47.0) L 10/02/19 06:58 MCV 89 fl (80-97) 10/02/19 06:58 MCH 30.3 pg (27.0-33.4) 10/02/19 06:58 MCHC 34.2 g/dL (32.0-36.0) 10/02/19 06:58 RDW 13.6 % (11.5-14.0) 10/02/19 06:58 Plt Count 182 10^3/uL (150-450) 10/02/19 06:58 Lymph % (Auto) 18.5 % (13-45) 10/01/19 07:37 [place] % (Auto) 6.9 % (3-13) 10/01/19 07:37 Eos % (Auto) 0.4 % (0-6) 10/01/19 07:37 Baso % (Auto) 0.2 % (0-2) 10/01/19 07:37 Absolute Neuts (auto) 8.1 10^3/uL (1.7-8.2) 10/01/19 07:37 Absolute Lymphs (auto) 2.0 10^3/uL (0.5-4.7) 10/01/19 07:37 Absolute Monos (auto) 0.8 10^3/uL (0.1-1.4) 10/01/19 07:37 Absolute Eos (auto) 0.0 10^3/uL (0.0-0.6) 10/01/19 07:37 Absolute Basos (auto) 0.0 10^3/uL (0.0-0.2) 10/01/19 07:37 Seg Neutrophils % 74.0 % (42-78) 10/01/19 07:37 Urine Color YELLOW 10/01/19 06:47 Urine Appearance CLOUDY 10/01/19 06:47 Urine pH 7.0 (5.0-9.0) 10/01/19 06:47 Ur Specific [place] 1.012 10/01/19 06:47 Urine Protein NEGATIVE mg/dL (NEGATIVE) 10/01/19 06:47 Urine Glucose (UA) NEGATIVE mg/dL (NEGATIVE) 10/01/19 06:47 Urine Ketones NEGATIVE mg/dL (NEGATIVE) 10/01/19 06:47 Urine Blood NEGATIVE (NEGATIVE) 10/01/19 06:47 Urine Nitrite NEGATIVE (NEGATIVE) 10/01/19 06:47 Urine Bilirubin NEGATIVE (NEGATIVE) 10/01/19 06:47 Urine Urobilinogen NEGATIVE mg/dL (<2.0) 10/01/19 06:47 Ur Leukocyte Esterase LARGE (NEGATIVE) H 10/01/19 06:47 Urine Ascorbic Acid NEGATIVE (NEGATIVE) 10/01/19 06:47 Urine Opiates Screen NEGATIVE 10/01/19 06:47 Urine Methadone Screen NEGATIVE 10/01/19 06:47 Ur Barbiturates Screen NEGATIVE 10/01/19 06:47 Ur Phencyclidine Scrn NEGATIVE 10/01/19 06:47 Ur Amphetamines Screen NEGATIVE 10/01/19 06:47 U Benzodiazepines Scrn NEGATIVE 10/01/19 06:47 Urine Cocaine Screen NEGATIVE 10/01/19 06:47 U Marijuana (THC) Screen NEGATIVE 10/01/19 06:47 RPR NONREACTIVE (NONREACTIVE) 10/01/19 07:37 Blood Type A POSITIVE 10/01/19 07:37 Antibody Screen NEGATIVE 10/01/19 07:37 Plan Health Concerns: routine Plan of Treatment: dc home, rev S&S to report, take PNV's Goals: no complications Time Spent: Less than 30 Minutes
[2019-10-03 10:13] VITALS: BP 114/65
== END 2019-10-03 18:22 | disposition home or self-care (01) | DRG 807 ==
LOC: LC 06:34 → LR 08:00 → 2S 13:42
PROVIDERS: ADMIT Obstetrics & Gynecology; ATTEND Obstetrics & Gynecology
PROC: 10E0XZZ Delivery of Products of Conception, External Approach (ICD-10-PCS; principal; 2019-10-01)
PROC: 3E0234Z Introduction of Serum, Toxoid and Vaccine into Muscle, Percutaneous Approach (ICD-10-PCS; 2019-10-03)
DX: O99.824 Streptococcus B carrier state complicating childbirth (principal); O13.4 Gestational [pregnancy-induced] hypertension without significant proteinuria, complicating childbirth; Z37.0 Single live birth; D64.9 Anemia, unspecified; O99.02 Anemia complicating childbirth; Z3A.39 39 weeks gestation of pregnancy; Z23 Encounter for immunization; Z86.19 Personal history of other infectious and parasitic diseases
CPT/HCPCS: 36415; 80307; 81005; 85025; 85027; 86592; 86850; 86900; 86901; 90715; J2540; J2590; J3010; J3490; J7060

== ENCOUNTER 2019-11-09 18:07 | Emergency (ER) | payer MEDICAID ==
[2019-11-09] MEDS ORDERED: NORMAL SALINE IV ONE (18:49)
[2019-11-09 19:05] LABS: ABSOLUTE LYMPHOCYTES (AUTO) 0.8 10^3/uL (0.5-4.7); ABSOLUTE MONOCYTES (AUTO) 1.3 10^3/uL (0.1-1.4); ABSOLUTE NEUT (AUTO) 11.1 10^3/uL (1.7-8.2); BASOPHILS % (AUTO) 0.1 % (0-2); HEMOGLOBIN 11.4 g/dL (12.0-15.5); LYMPHOCYTES % (AUTO) 6.2 % (13-45); MEAN CORPUSCULAR HEMOGLOBIN 29.3 pg (27.0-33.4); MEAN CORPUSCULAR HGB CONC 34.5 g/dL (32.0-36.0); MEAN CORPUSCULAR VOLUME 85 fl (80-97); MONOCYTES % (AUTO) 10.1 % (3-13); PLATELET COUNT 141 10^3/uL (150-450); RED CELL DISTRIBUTION WIDTH 14.3 % (11.5-14.0); SEGMENTED NEUTROPHILS % (AUTO) 83.6 % (42-78); TOTAL CELLS COUNTED % (AUTO) 100 %; WHITE BLOOD COUNT 13.2 10^3/uL (4.0-10.5)
[2019-11-09 19:13] LABS: INTERNATIONAL RATION (INR) 1.16; PROTHROMBIN TIME 14.9 SEC (11.4-15.4)
--- NOTE | 2019-11-09 19:43 | RADIOLOGY REPORT (SQ) ---
EXAM DESCRIPTION: CHEST SINGLE VIEW IMAGES COMPLETED DATE/TIME: 11/09/2019 7:33 pm REASON FOR STUDY: CHEST PAIN/SOB COMPARISON: None. EXAM PARAMETERS: NUMBER OF VIEWS: One view. TECHNIQUE: Single frontal radiographic view of the chest acquired. RADIATION DOSE: NA LIMITATIONS: None. FINDINGS: LUNGS AND PLEURA: No opacities, masses or pneumothorax. No pleural effusion. MEDIASTINUM AND HILAR STRUCTURES: No masses. Contour normal. HEART AND VASCULAR STRUCTURES: Heart normal in size. Normal vasculature. BONES: No acute findings. HARDWARE: None in the chest. OTHER: No other significant finding. IMPRESSION: NO ACUTE RADIOGRAPHIC FINDING IN THE CHEST. TECHNICAL DOCUMENTATION: JOB ID: [id number] 2010 [employer]- All Rights Reserved Reading location - IP/workstation name: [email or web address]
[2019-11-09 20:00] LABS: ALBUMIN 3.5 g/dL (3.5-5.0); ALKALINE PHOSPHATASE 84 U/L (38-126); ANION GAP 12 (5-19); ASPARTATE AMINO TRANSFERASE 20 U/L (14-36); BILIRUBIN,DIRECT 0.4 mg/dL (0.0-0.4); BILIRUBIN,TOTAL 1.1 mg/dL (0.2-1.3); BLOOD UREA NITROGEN 11 mg/dL (7-20); CALCIUM 8.7 mg/dL (8.4-10.2); CARBON DIOXIDE 20 mmol/L (22-30); CHLORIDE 103 mmol/L (98-107); GLUCOSE 107 mg/dL (75-110); POTASSIUM 3.4 mmol/L (3.6-5.0); TOTAL PROTEIN 6.5 g/dL (6.3-8.2)
[2019-11-09] MEDS ORDERED: ACETAMINOPHEN 325 MG TABLET PO ONE (20:33)
--- NOTE | 2019-11-09 20:42 | ER Document Report ---
ED General - General Chief Complaint: Shortness Of Breath Stated Complaint: SHORTNESS OF BREATH Time Seen by Provider: 11/09/19 20:02 Primary Care Provider: JUSTO YATES MD [Primary Care Provider] - Follow up as needed Mode of Arrival: Ambulatory Information source: Patient Notes: This 18-year-old female presents to the emergency department with a complaint of myalgias with body aches and pain, fever, chills, and feeling poorly for the past 2 days. She is 4 weeks , denies dysuria, cough or congestion. She complains of feeling as though it is difficult to get a breath and also tightness in the midsternal region. She denies a history of pneumonia, asthma, CAD. After going to the bathroom the patient notes that she has a yellowish vaginal discharge and pain in her right pelvic region. She notes that this is the first time that she has noticed the discharge. TRAVEL OUTSIDE OF THE [place] IN LAST 30 DAYS: No - Related Data Allergies/Adverse Reactions: No Known Allergies Allergy (Verified 11/09/19 18:40) Past Medical History - Social History Smoking Status: Current Every Day Smoker Family History: Reviewed & Not Pertinent Patient has suicidal ideation: No Patient has homicidal ideation: No Review of Systems - Review of Systems Notes: Constitutional: + Fever. HENT: Negative for sore throat. Eyes: Negative for visual changes. Cardiovascular: + Chest tightness Respiratory: Negative for shortness of breath. Gastrointestinal: Negative for abdominal pain, vomiting or diarrhea. Genitourinary: Negative for dysuria. Musculoskeletal: + Myalgias Skin: Negative for rash. Neurological: Negative for headaches, weakness or numbness. 10 point ROS negative except as marked above and in HPI. Physical Exam - Vital signs Vitals: Temp Pulse Resp BP Pulse Ox 101.5 F H 144 H 20 110/60 98 11/09/19 18:40 11/09/19 18:40 11/09/19 18:40 11/09/19 18:40 11/09/19 18:40 - Notes Notes: PHYSICAL EXAMINATION: Physical Exam: General: Well-nourished well-developed 18-year-old female in no acute distress HEENT: NC/AT, pupils equal round and reactive to light, MM moist,nares clear, oropharynx clear, airway patent Neck: supple, no adenopathy, no masses. Good range of motion Lungs: clear, no wheezing, no rales no rhonchi CVS: Regular rate and rhythm no murmur gallop or rub Abdomen: Soft, active, nontender, no masses, no hepatosplenomegaly : Normal external genitalia, a thick yellowish-green discharge from the cervix pooling in the posterior vaginal vault, cervix with erythema and + cervical motion tenderness. Uterine tenderness to palpation, no adnexal tenderness. Ext: No edema, clubbing or cyanosis. Neuro: Alert and responsive, moving all 4 extremities on command, cranial nerves intact, no focal findings Skin: Intact no open lesions, no rash PSYCH: Normal mood, normal affect. Course - Re-evaluation Re-evalutation: 11/09/19 22:00 I discussed the patient with the [facility] [facility] on-call, Dr. Kent, she agrees that patient can receive IV antibiotics Zosyn 3.375 g IV and treated with Augmentin as an outpatient. Patient will follow-up with [facility] as an outpatient clinic next week for return to the emergency department if her symptoms are worsening, fever is uncontrolled, or nausea and vomiting unable to keep down the medications. This plan is discussed with the patient and she is in agreement with that plan. - Vital Signs Vital signs: Temp Pulse Resp BP Pulse Ox 98.6 F 100 16 123/72 99 11/09/19 23:19 11/09/19 22:00 11/09/19 23:19 11/09/19 23:19 11/09/19 23:19 - Laboratory Result Diagrams: 11/09/19 18:40 11/09/19 18:40 Laboratory results interpreted by me: 11/09/19 11/09/19 11/09/19 18:40 18:40 20:15 WBC 13.2 H Hgb 11.4 L Hct 33.0 L RDW 14.3 H Plt Count 141 L Lymph % (Auto) 6.2 L Absolute Neuts (auto) 11.1 H Seg Neutrophils % 83.6 H Sodium 135.0 L Potassium 3.4 L Carbon Dioxide 20 L Urine Protein 100 H Urine Blood SMALL H Urine Urobilinogen 2.0 H Leukocyte Esterase Rfl SMALL H - Diagnostic Test Radiology reviewed: Image reviewed, Reports reviewed - Chest x-ray: No acute cardiopulmonary findings. Discharge - Discharge Clinical Impression: Pelvic inflammatory disease (PID), Pelvic pain Fever Qualifiers: Fever type: due to other condition Qualified Code(s): R50.81 - Fever presenting with conditions classified elsewhere Leukocytosis Qualifiers: Leukocytosis type: unspecified Qualified Code(s): D72.829 - Elevated white blood cell count, unspecified Condition: Good Disposition: HOME, SELF-CARE Instructions: Pelvic Inflammatory Disease ([facility]) Additional Instructions: You were diagnosed and treated for a pelvic infection in the emergency department tonight. Please continue Tylenol every 4-6 hours as needed for fever control. Continue to drink plenty of fluids, take the antibiotics as prescribed (Augmentin) and follow-up with [facility]. Please call the office and schedule an appointment tomorrow. If your symptoms are worsening or if you have other concerns you may return to the emergency department for further evaluation and treatment. HOME CARE INSTRUCTIONS & INFORMATION: Thank you for choosing us for your medical needs. We hope you're satisfied with the care you received. After you leave, you must properly care for your problem and, at the same time, observe its progress. Any condition can change. Some illnesses can change rapidly over hours or days. If your condition worsens, return to the Emergency Department or see your physician promptly. ABOUT YOUR X-RAYS AND EKG'S: If you had an EKG or X-rays taken, they have been read by the Emergency Physician. The X-rays and EKG's will also be read by a Radiologist or [facility] within 24 hours. If discrepancies are noted, you will be notified by telephone. Please be certain the ED has a correct telephone number & address where you can be reached. Also, realize that some fractures or abnormalities do not show up on initial X-rays. If your symptoms continue, see your physician. ABOUT YOUR LABORATORY TEST: If you had laboratory tests, the results have been reviewed by the Emergency Physician. Some test results (for example cultures) may not be available for several days. You will be contacted if any test result shows you need additional treatment. Please be certain the ED has a correct telephone number and address where you can be reached. ABOUT YOUR MEDICATIONS: You will receive instructions on how to take your medicine on the prescription label you receive. Additional information may be provided by the Pharmacy. If you have questions afterwards, call the ED for clarification or further instructions. Some prescribed medications may cause drowsiness. Do not perform tasks such as driving a car or operating machinery without consulting your Pharmacist. If you feel you need a refill of pain medication, your condition will need re-evaluation. Please do not call for a refill of any medication. ABOUT YOUR SIGNATURE: Signature of this document acknowledges to followin. Understanding that you received emergency treatment and that you may be released before al medical problems are known or treated. Please be certain the ED has a correct phone number & address where you can be reached. 2. Acknowledgement that you will arrange for follow-up care as recommended. 3. Authorization for the Emergency Physician to provide information to your follow-up Physician in order to maximize your care. AT ANY TIME, IF YOUR SYMPTOMS CHANGE SIGNIFICANTLY OR WORSEN OR YOU DEVELOP NEW SYMPTOMS, RETURN TO THE EMERGENCY DEPARTMENT IMMEDIATELY FOR RE-EVALUATION. OUR GOAL IS TO PROVIDE EXCELLENT MEDICAL CARE! WE HOPE THAT WE HAVE MET YOUR EXPECTATIONS DURING YOUR EMERGENCY DEPARTMENT VISIT AND THAT YOU FEEL YOU HAVE RECEIVED EXCELLENT CARE! Prescriptions: Amoxicillin/Potassium Clav [Augmentin 875-125 Tablet] 1 tab PO BID #20 tab Referrals: JUSTO YATES MD [Primary Care Provider] - Follow up as needed
[2019-11-09 20:49] LABS: APPEARANCE,URINE CLOUDY; BILIRUBIN,URINE NEGATIVE (NEGATIVE); COLOR,URINE YELLOW; GLUCOSE, URINE NEGATIVE (NEGATIVE); KETONES,URINE NEGATIVE (NEGATIVE); PROTEIN,URINE 100 mg/dL (NEGATIVE); URINE SPECIFIC GRAVITY 1.014
--- NOTE | 2019-11-09 21:46 | EKG REPORT ---
SEVERITY:- OTHERWISE NORMAL ECG - SINUS TACHYCARDIA : Confirmed by: Brenda Logan MD 09-Nov-2019 21:45:29
[2019-11-09 22:00] LABS: A TYPE INFLUENZA AG NEGATIVE (NEGATIVE); B INFLUENZA AG NEGATIVE (NEGATIVE)
[2019-11-09] MEDS ORDERED: PIPERACILLIN/TAZOBACTAM 3.375 GM VIAL IV ONE (22:04)
[2019-11-09] MEDS ORDERED: AMOXICILLIN TR/POT CLAVULANATE 875-125 MG TAB PO ONE (22:07)
[2019-11-09] MEDS ORDERED: ONDANSETRON ODT 4 MG TAB (6 TAB/ER DISP) PO PRN (22:15)
[2019-11-09] MEDS ORDERED: ONDANSETRON HCL INJ/PF 4 MG/2 ML SDV IV ONE (22:15)
[2019-11-09 22:27] LABS: BACTERIA (WET MOUNT) 3+ BACTERIA SEEN; RBCS (WET MOUNT) 1+ RBCS SEEN; T.VAGINALIS (WET MOUNT) NO TRICHOMONAS SEEN; WBCS (WET MOUNT) 2+ WBCS SEEN; YEAST (WET MOUNT) NO YEAST SEEN
[2019-11-09 23:23] VITALS: BP 123/72
[2019-11-09 23:44] LABS: CHLAM PCR NOT DETECTED (NOT DETECT)
== END 2019-11-10 00:25 | disposition home or self-care (01) ==
LOC: ER 18:07
DX: N73.9 Female pelvic inflammatory disease, unspecified (principal); R10.2 Pelvic and perineal pain; D72.829 Elevated white blood cell count, unspecified; R50.81 Fever presenting with conditions classified elsewhere; R06.02 Shortness of breath; M79.10 Myalgia, unspecified site; R07.9 Chest pain, unspecified; F17.200 Nicotine dependence, unspecified, uncomplicated
CPT/HCPCS: 93005; 99285; 96361; 96375; 96365; 36415; 87040; 87070 ×2; 87205; 87210; 87880; 83605; 84703; 85025; 85610; 87077; 80053; 81001; 84484; 87186; 87491; 87591; 87804; 71045; 93010; J3490 ×2; J2405; J7030; J2543